=== PATIENT | female | born 1995 | race American Indian/Alaskan Native ===

== ENCOUNTER 2019-06-17 17:14 | Inpatient (IN) | payer SELFPAY ==
[2019-06-17] MEDS ORDERED: TERBUTALINE 1 MG/1 ML INJ SUB-Q PRN (20:21)
[2019-06-17] MEDS ORDERED: AMPICILLIN/NS 2 GM/100 ML 2 GM/100 ML BAG IV ONE (20:21)
[2019-06-17] MEDS ORDERED: ePHEDrine SULFATE 50 MG/1 ML INJ IV PRN (20:21)
[2019-06-17] MEDS ORDERED: TERBUTALINE 1 MG/1 ML INJ IVP PRN (20:21)
[2019-06-17] MEDS ORDERED: MINERAL OIL 30 ML ORAL LIQD PO PRN (20:21)
[2019-06-17] MEDS ORDERED: LIDOCAINE (2%) 20 MG/1 ML VIAL 20 ML MDV INFILTRATI ONE (20:21)
[2019-06-17] MEDS ORDERED: OXYTOCIN DRIP 30 UNITS/500 ML BAG IV SCH ×2 (21:00)
[2019-06-17] MEDS ORDERED: OXYTOCIN 20 UNIT/1000ML DRIP 20 UNITS/1,000 ML BAG IV SCH ×2 (21:00→22:00)
[2019-06-17] MEDS ORDERED: LACTATED RINGERS 1,000 ML IV SCH (21:00)
[2019-06-17 21:40] LABS: Hematocrit 33.6 % (30.3-42.9); Hemoglobin 11.2 gm/dl (10.1-14.3); Mean Corpuscular HGB Conc 33 % (30-34); Mean Corpuscular Volume 80 fl (79-97); Platelet Count 260 K/mm3 (140-440); Red Blood Count 4.21 M/mm3 (3.65-5.03); Red Cell Distribution Width 14.5 % (13.2-15.2)
[2019-06-17] MEDS ORDERED: PROMETHAZINE 25 MG RECT SUPP PR PRN (21:40)
[2019-06-17] MEDS: LACTATED RINGERS 1,000 ML IV SCH (22:18)
[2019-06-17] MEDS: BUTORPHANOL 2 MG/1 ML INJ IV PRN (22:18)
[2019-06-18] MEDS: LACTATED RINGERS 1,000 ML IV SCH ×2 (00:35→02:46)
[2019-06-18] MEDS: BUTORPHANOL 2 MG/1 ML INJ IV PRN ×2 (00:48→02:45)
[2019-06-18] MEDS: AMPICILLIN/NS 1 GM/50 ML 1 GM/50 ML BAG IV SCH ×2 (02:30→06:33)
[2019-06-18] MEDS ORDERED: DEXMEDETOMIDINE 200 MCG/2 ML VIAL IV ONE (04:06)
[2019-06-18] MEDS ORDERED: fentaNYL-BUPIV 2 MCG/ML-0.125% 200 MCG/100 ML BAG EPIDURAL ONE (04:06)
[2019-06-18] MEDS ORDERED: ePHEDrine SULFATE 50 MG/1 ML INJ IV PRN (04:24)
[2019-06-18] MEDS ORDERED: NALOXONE 2 MG/2 ML INJ IV PRN (04:24)
--- NOTE | 2019-06-18 04:24 | Anesthesia Consultation ---
Anesthesia Consult and Med Hx Date of service: 06/18/19 - Airway Anesthetic Teeth Evaluation: Good ROM Head & Neck: Adequate Mental/Hyoid Distance: Adequate Mallampati Class: Class II Intubation Access Assessment: Probably Good - Pulmonary Exam CTA: Yes - Cardiac Exam Cardiac Exam: RRR - Pre-Operative Health Status ASA Pre-Surgery Classification: ASA2 Proposed Anesthetic Plan: Epidural - Pulmonary Hx Asthma: No COPD: No Hx Pneumonia: No - Cardiovascular System Hx Hypertension: No - Central Nervous System Hx Seizures: No Hx Psychiatric Problems: No - Endocrine Hx Renal Disease: No Hx End Stage Renal Disease: No Hx Hypothyroidism: No Hx Hyperthyroidism: No - Hematic Hx Anemia: No Hx Sickle Cell Disease: No - Other Systems Hx Alcohol Use: No
[2019-06-18] MEDS ORDERED: fentaNYL-BUPIV 2 MCG/ML-0.125% 200 MCG/100 ML BAG EPIDURAL SCH (05:00)
--- NOTE | 2019-06-18 08:32 | History and Physical Report ---
History of Present Illness Date of examination: 06/18/19 Date of admission: 06/17/19 20:21 Chief complaint: I'm having contractions History of present illness: Pt is a 24 year old who presents to L&D with regular contractions at 40.3 weeks with EDC 06/14/2019. Pt received some care in the [facility] but has not seen a doctor since April since she has been in the [place]. Pt patient has no apparent health issues and has had no apparent issues with the . She is HIV negative. Past History Past Medical History: no pertinent history Past Surgical History: no surgical history Social history: single - Obstetrical History Expected Date of Delivery: 06/14/19 Actual Gestation: 40 Week(s) 4 Day(s) : 2 Para: 0 Number of Living Children: 0 Medications and Allergies Allergies Allergy/AdvReac Type Severity Reaction Status Date / Time No Known Allergies Allergy Unverified 06/17/19 19:46 Active Meds: Active Medications Butorphanol Tartrate (Stadol) 2 mg IV Q2H PRN PRN Reason: Pain , Severe (7-10) Last Admin: 06/18/19 02:45 Dose: 2 mg Documented by: Ephedrine Sulfate (Ephedrine Sulfate) 10 mg IV Q2M PRN PRN Reason: Hypotension Oxytocin/Sodium Chloride (Pitocin/Ns 30 Unit/500ml) 30 units in 500 mls @ 1 mls/hr IV TITR CALLI; Protocol Last Titration: 06/18/19 06:52 Dose: 0 milliunits/min, 0 mls/hr Documented by: Oxytocin/Sodium Chloride (Pitocin/Ns 20 Unit/1000ml Drip) 20 units in 1,000 mls @ 125 mls/hr IV DIRECT CALLI Lactated Ringer's (Lactated Ringers) 1,000 mls @ 125 mls/hr IV DIRECT CALLI Last Admin: 06/18/19 02:46 Dose: 125 mls/hr Documented by: Ampicillin Sodium (Ampicillin/Ns 1 Gm/50 Ml) 1 gm in 50 mls @ 100 mls/hr IV Q4HR CALLI; Protocol Last Admin: 06/18/19 06:33 Dose: 100 mls/hr Documented by: Fentanyl/Bupivacaine/Sodium Chlor (Fentanyl-Bupiv 2 Mcg/Ml-0.125%) 200 mcg in 100 mls @ 12 mls/hr EPIDURAL TITR CALLI; Protocol Last Admin: 06/18/19 05:11 Dose: 12 mls/hr Documented by: Mineral Oil (Mineral Oil) 30 ml PO QHS PRN PRN Reason: Constipation Naloxone HCl (Naloxone) 0.2 mg IV Q5M PRN PRN Reason: Respiratory sedation Promethazine HCl (Phenergan) 25 mg OR Q6H PRN PRN Reason: N/V if unable to take po Terbutaline Sulfate (Brethine) 0.25 mg SUB-Q ONCE PRN PRN Reason: Hyperstimulation/Hypertonicity Terbutaline Sulfate (Brethine) 0.25 mg IVP ONCE PRN PRN Reason: Hyperstimulation/Hypertonicity Review of Systems All systems: negative Constitutional: lethargy Genitourinary: contractions - Vital Signs Vital signs: Vital Signs Temp Pulse Resp BP 98.7 F 93 H 14 115/70 06/17/19 17:52 06/17/19 17:52 06/17/19 17:52 06/17/19 17:52 Temp Pulse Resp BP Pulse Ox 99.6 F 70 16 105/54 97 06/18/19 06:30 06/18/19 08:26 06/18/19 04:45 06/18/19 08:26 06/18/19 08:26 - Physical Exam Breasts: Positive: deferred Cardiovascular: Regular rate, Normal S1, Normal S2 Lungs: Positive: Clear to auscultation, Normal air movement Abdomen: Positive: normal appearance, soft, normal bowel sounds. Negative: distention, tenderness Vulva: both: normal Vagina: Positive: normal moisture. Negative: discharge Cervix: Negative: lesion, discharge Uterus: Positive: normal size, normal contour Adnexa: both: normal Anus/Rectum: Positive: normal perianal skin, heme negative. Negative: rectal mass, hemorrhoids Extremities: Deep Tendon Reflex Grade: Normal +2 - Obstetrical Cervical Dilatation: 3 Cervical Effacement Percentage: 80 station: -2 Uterine Contraction Duration: 3 Uterine Contraction Pattern: Regular Uterine Tone Measurement Phase: Contraction Uterine Contraction Intensity: Moderate Results Result Diagrams: 06/17/19 21:13 Abnormal lab results 06/17/19 Range/Units 21:13 WBC 14.3 H (4.5-11.0) K/mm3 MCH 27 L (28-32) pg All other labs normal. Assessment and Plan IUP at 40.2 weeks in active labor. Admit for labor. Will obtain missing labs not included in information. Will treat for unknown GBS status. AROM. anticipate .
--- NOTE | 2019-06-18 08:47 | Procedure Note ---
OB Delivery Note - Delivery Date of Delivery: 06/18/19 Surgeon: ANGELA KATZ Estimated blood loss: 200cc - Vaginal Delivery presentation: vertex Delivery position: OA Intrapartum events: none Delivery induction: none Delivery augmentation: pitocin Delivery monitor: external FHT, external uterine Route of delivery: Delivery placenta: spontaneous Delivery cord: nuchal cord Episiotomy: none Delivery laceration: none Anesthesia: none, epidural Delivery comments: Viable female delivered over intact perineum with Apgars 8,9. Weight 6 pounds 8 ounces. Loose nuchal reduced on the peineum. Mouth and nose suctioned. Placenta delivered spontaneosly and intact with 3vc. No lacerations that needed repair. Pt tolerated procedure well. EXcellent hemostasis. - Infant A at 1 minute: 8 at 5 minutes: 9 Gender: Female (6 pounds 8 ounces)
[2019-06-18] MEDS ORDERED: LANOLIN/ZINC/DIMETHICONE (LANSINOH) 7 GM TP PRN (10:39)
[2019-06-18] MEDS ORDERED: KETOROLAC 30 MG/1 ML INJ IV PRN (10:39)
[2019-06-18] MEDS ORDERED: ACETAMINOPHEN 325 MG TAB PO PRN (10:39)
[2019-06-18] MEDS ORDERED: MAGNESIUM HYDROXIDE (MOM) ORAL LIQD UDC PO PRN (10:39)
[2019-06-18] MEDS ORDERED: HYDROcodone/ACETAMINOPHEN 5-325 MG TAB PO PRN (10:39)
[2019-06-18] MEDS ORDERED: PROMETHAZINE 25 MG TAB PO PRN (10:39)
[2019-06-18] MEDS ORDERED: WITCH HAZEL/ GLYCERIN PAD TP PRN (10:39)
[2019-06-18] MEDS ORDERED: diphenhydrAMINE 25 MG CAP PO PRN (10:39)
[2019-06-18] MEDS ORDERED: ONDANSETRON 4 MG/2 ML INJ IV PRN (10:39)
[2019-06-18] MEDS ORDERED: PROMETHAZINE 25 MG RECT SUPP PR PRN (10:39)
[2019-06-18] MEDS ORDERED: SENNOSIDES/DOCUSATE SODIUM 8.6/50 MG TAB PO SCH (11:00)
[2019-06-18] MEDS: PRENATAL VIT27-FE FUMARATE-FOLIC ACID VIT TAB PO SCH (11:23)
[2019-06-18] MEDS: IBUPROFEN 600 MG TAB PO SCH ×2 (11:23→17:18)
[2019-06-18 22:17] LABS: Hemoglobin 10.4 gm/dl (10.1-14.3)
[2019-06-19] MEDS ORDERED: DIPHtheria,PERTUSSIS(ACELL),TETANUS VACCINE/PF 0.5 ML VIAL IM ONE (06:00)
--- NOTE | 2019-06-19 08:41 | Progress Note ---
Assessment and Plan A: PPD#1 s/p at term P: Routine postop care. Anticipate discharge later today. Subjective - Subjective Date of service: 06/19/19 Principal diagnosis: s/p at term Interval history: No issues overnight. Pt would like to be discharged. Patient reports: appetite normal, voiding normally, pain well controlled, ambulating normally [place]: doing well Objective - Vital Signs Latest vital signs: Vital Signs Temp Pulse Resp BP Pulse Ox 06/19/19 01:28 98.5 F 61 14 99/52 97 06/18/19 21:36 98.3 F 60 16 108/55 98 06/18/19 16:25 97.9 F 58 L 18 100/51 94 06/18/19 10:07 98.6 F 65 18 110/42 96 06/18/19 10:00 98.7 F 18 06/18/19 09:24 62 102/54 06/18/19 09:09 75 96/54 06/18/19 08:55 69 94/50 Intake and Output 06/18/19 06/19/19 06/19/19 22:59 06:59 14:59 Intake Total 600 240 Balance 600 240 Intake: Intake, Free Water 600 240 Other: # Voids Void 1 1 - Exam Abdomen: Present: soft Uterus: Present: fundal height at umbilicus Extremities: Present: normal
--- NOTE | 2019-06-19 08:41 | Discharge Summary ---
Providers - Providers Date of Admission: 06/17/19 20:21 Date of discharge: 06/19/19 Attending physician: MARCIA KATZ Primary care physician: MARCIA KATZ Hospitalization Reason for admission: active labor Delivery: Procedure details: Please see delivery note. Episiotomy: none Laceration: none Other procedures: none complications: none Discharge diagnosis: IUP at term delivered [place] baby: female Hospital course: This patient was admitted in active labor and went on to have a spontaneous vaginal delivery which he tolerated well. Her course was uncomplicated and she met discharge criteria on day #1. She will follow-up in the office in [address] Marcia Katz. Condition at discharge: Stable Disposition: DC-01 TO HOME OR SELFCARE - Discharge Diagnoses (1) Term of female Status: Acute Plan - Discharge Medications Prescriptions: Ibuprofen [Motrin] 600 mg PO Q6H PRN #30 tablet PRN Reason: Pain HYDROcodone/APAP 5-325 [Matthews 5/325] 1 each PO Q6HR PRN #15 tablet PRN Reason: Pain - Provider Discharge Summary Activity: routine, no sex for 6 weeks, no heavy lifting 4 weeks, no strenuous exercise Diet: routine Instructions: routine Additional instructions: [] Smoking cessation referral if applicable(refer to patient education folder for contact #) [] Refer to [facility] Booklet Call your doctor immediately for: * Fever > 100.5 * Heavy vaginal bleeding ( >1 pad per hour) * Severe persistent headache * Shortness of breath * Reddened, hot, painful area to leg or breast * Drainage or odor from incision. * Keep incision clean and dry at all times and follow doctor's instructions regarding bathing/showering - Follow up plan Follow up: MARCIA KATZ MD [Primary Care Provider] - 6 Weeks
[2019-06-19] MEDS: DOCUSATE SODIUM 100 MG CAP PO SCH (10:48)
[2019-06-19] MEDS: PRENATAL VIT27-FE FUMARATE-FOLIC ACID VIT TAB PO SCH (10:50)
[2019-06-19] MEDS: IBUPROFEN 600 MG TAB PO SCH (18:12)
--- NOTE | 2019-06-19 20:51 | Post Anesthesia Evaluation ---
- Post Anesthesia Evaluation Patient Participated: Yes Airway Patent: Yes Stable Respiratory Function: Yes Nausea/Vomiting: No Temp > 96.8F: Yes Pain Manageable: Yes Adequeate Hydration: Yes Anesthesia Complications: No Block Receding Appropriately: Yes
[2019-06-20] MEDS: PRENATAL VIT27-FE FUMARATE-FOLIC ACID VIT TAB PO SCH (09:20)
[2019-06-20] MEDS: DOCUSATE SODIUM 100 MG CAP PO SCH (09:20)
[2019-06-22 11:29] VITALS: BP 108/53
== END 2019-06-20 15:44 | disposition home or self-care (01) | DRG 807 ==
LOC: TRG 17:14 → APU 17:15 → LD 20:21 → TRG 20:21 → OB 06-18 10:37
PROVIDERS: ADMIT Obstetrics & Gynecology; ATTEND Obstetrics & Gynecology
PROC: 10E0XZZ Delivery of Products of Conception, External Approach (ICD-10-PCS; principal; 2019-06-18)
PROC: 3E0R3BZ Introduction of Anesthetic Agent into Spinal Canal, Percutaneous Approach (ICD-10-PCS; 2019-06-18)
PROC: 00HU33Z Insertion of Infusion Device into Spinal Canal, Percutaneous Approach (ICD-10-PCS; 2019-06-18)
PROC: 3E0234Z Introduction of Serum, Toxoid and Vaccine into Muscle, Percutaneous Approach (ICD-10-PCS; 2019-06-19)
DX: O69.81X0 Labor and delivery complicated by cord around neck, without compression, not applicable or unspecified (principal); Z37.0 Single live birth; Z3A.40 40 weeks gestation of pregnancy; Z23 Encounter for immunization
CPT/HCPCS: 36415; 85014; 85018; 85027; 86762; 86850; 86900; 86901; 87591; G0378; A6250; J0290; J0595; J2590; J3490; J7120